=== PATIENT | female | born 1995 | race Asian ===

== ENCOUNTER 2016-08-24 04:33 | Emergency (ER) | payer MEDICAID ==
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
[2016-08-24 04:51] VITALS: BP 106/90; PULSE 92; RESP 20; TEMP 97.7; O2SAT 98
[2016-08-24] MEDS ORDERED: ONDANSETRON DISINTEGRATING 4 MG TAB PO ONE (08:03)
[2016-08-24] MEDS ORDERED: AZITHROMYCIN 250 MG TAB PO ONE (08:03)
[2016-08-24] MEDS ORDERED: CEFTRIAXONE IM 350 MG/ML SYRINGE IM ONE (08:03)
== END 2016-08-24 10:10 | disposition home or self-care (01) ==
LOC: SANE 04:33
DX: Z04.41 Encounter for examination and observation following alleged adult rape (principal)
CPT/HCPCS: J0696